=== PATIENT | female | born 1990 | race Caucasian/White ===

== ENCOUNTER 2016-12-27 09:46 | Emergency (ER) | payer SELFPAY ==
[2016-12-27 10:41] LABS: Basophils % (Auto) 0.5 % (0.0-1.8); Eosinophils % (Auto) 1.5 % (0.0-4.3); Hematocrit 39.9 % (30.3-42.9); Hemoglobin 12.8 gm/dl (10.1-14.3); Mean Corpuscular HGB Conc 32 % (30-34); Mean Corpuscular Volume 74 fl (79-97); Platelet Count 222 K/mm3 (140-440); Red Cell Distribution Width 15.7 % (13.2-15.2); White Blood Count 7.7 K/mm3 (4.5-11.0)
[2016-12-27 10:57] LABS: Mean Corpuscular Hemoglobin 24 pg (28-32)
[2016-12-27 11:04] LABS: Anion Gap 17 mmol/L; Blood Urea Nitrogen 6 mg/dL (7-17); Carbon Dioxide 24 mmol/L (22-30); Chloride 101.1 mmol/L (98-107); Glucose 111 mg/dL (65-100); Potassium 3.3 mmol/L (3.6-5.0); Sodium 139 mmol/L (137-145)
--- NOTE | 2016-12-27 11:35 | XRay Report ---
PA and lateral chest: SOB chest pain. There is a moderate scoliosis of the lower thoracic spine. The lungs are clear. The mediastinal contour is unremarkable with no vascular congestion. No prior studies for comparison. Impression: No acute findings.
[2016-12-27] MEDS ORDERED: TYLENOL #3 PO ONE (13:20)
--- NOTE | 2016-12-27 13:20 | Emergency Department Report ---
ED General Adult HPI - General Chief complaint: Chest Pain Stated complaint: BLURRED VISION/SOB/CHEST TIGHTNESS Time Seen by Provider: 12/27/16 13:05 Source: patient Mode of arrival: Ambulatory Limitations: No Limitations - History of Present Illness Initial comments: 26-year-old female. She is previously unknown to me. She reports a past medical history of anxiety. She presents to the ER with central chest wall pain. The pain does not radiate to the back, arms and neck. Patient reports that she is feeling very anxious. No recent trips greater than 4 hours. No recent hospital admissions. There is no posterior leg pain. She is not . She does not use cocaine. She does not report a family history of cardiac disease. Patient reports nonspecific nausea, however there is no diaphoresis. She reports intermittent shortness of breath. Patient reports pain increases with palpation, decreased with rest, it does not radiate to the back, arms or neck. -: Gradual, week(s) Location: chest Quality: aching Consistency: intermittent Improves with: rest Worsens with: movement Associated Symptoms: chest pain - Related Data Home Medications Medication Instructions Recorded Confirmed Last Taken No Known Home Medications [No 12/27/16 12/27/16 Unknown Reported Home Medications] Allergies Allergy/AdvReac Type Severity Reaction Status Date / Time ibuprofen Allergy Swelling Verified 12/27/16 10:00 ED Review of Systems ROS: Stated complaint: BLURRED VISION/SOB/CHEST TIGHTNESS Other details as noted in HPI Constitutional: denies: fever Eyes: denies: vision change ENT: denies: epistaxis Respiratory: see HPI, shortness of breath Cardiovascular: chest pain Gastrointestinal: denies: abdominal pain Genitourinary: denies: urgency, dysuria Musculoskeletal: denies: arthralgia, myalgia Skin: denies: lesions Neurological: weakness Psychiatric: anxiety ED Past Medical Hx - Past Medical History Previous Medical History?: No - Surgical History Past Surgical History?: No - Social History Smoking Status: Current Every Day Smoker Substance Use Type: None - Medications Home Medications: Home Medications Medication Instructions Recorded Confirmed Last Taken Type No Known Home Medications [No 12/27/16 12/27/16 Unknown History Reported Home Medications] ED Physical Exam - General Limitations: No Limitations General appearance: alert, anxious - Head Head exam: Present: atraumatic, normocephalic - Eye Eye exam: Present: normal appearance, EOMI. Absent: nystagmus - ENT ENT exam: Present: normal exam, normal orophraynx, mucous membranes moist, normal external ear exam - Neck Neck exam: Present: normal inspection, full ROM. Absent: tenderness, meningismus - Respiratory Respiratory exam: Present: normal lung sounds bilaterally, chest wall tenderness , other (the bilateral breast exam is unremarkable. During the breast examination, I am escorted by ER nurse Michelle Medina). Absent: respiratory distress, wheezes, rales, rhonchi, stridor - Cardiovascular Cardiovascular Exam: Present: regular rate, normal rhythm, normal heart sounds. Absent: bradycardia, tachycardia, irregular rhythm, systolic murmur, diastolic murmur, rubs, gallop - GI/Abdominal GI/Abdominal exam: Present: soft, normal bowel sounds. Absent: distended, tenderness, guarding, rebound, rigid, pulsatile mass - Extremities Exam Extremities exam: Present: normal inspection, full ROM, normal capillary refill. Absent: tenderness, pedal edema, joint swelling, calf tenderness - Back Exam Back exam: Present: normal inspection, full ROM. Absent: tenderness, CVA tenderness (R), CVA tenderness (L), muscle spasm, paraspinal tenderness, vertebral tenderness - Neurological Exam Neurological exam: Present: alert, oriented X3, normal gait, other (Extraocular movements intact. Tongue midline. No facial droop. Facial sensation intact to light touch in the V1, V2, V3 distribution bilaterally. 5 and 5 strength in 4 extremities.. Sensation is intact to light touch in 4 extremities.). Absent : motor sensory deficit - Psychiatric Psychiatric exam: Present: anxious - Skin Skin exam: Present: warm, dry, intact, normal color. Absent: rash ED Course Vital Signs 12/27/16 12/27/16 10:00 13:14 Temperature 98.4 F Pulse Rate 96 H 68 Respiratory 20 16 Rate Blood Pressure 140/91 Blood Pressure 124/76 [Left] O2 Sat by Pulse 100 98 Oximetry - Reevaluation(s) Reevaluation #1: 12/27/16 14:12 differential diagnosis: Anxiety, panic disorder, costochondritis , acute coronary syndrome, pneumonia Assessment and plan: 26-year-old female with clinically atypical chest pain on and off for one week, it is reproducible, no pulmonary embolus or DVT risk factors, low risk by well's criteria, perc negative. 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 Given objective evidence, the patient is at very low risk for major adverse cardiac event. ED Medical Decision Making - Lab Data Result diagrams: 12/27/16 10:08 12/27/16 10:15 Vital Signs 12/27/16 12/27/16 10:00 13:14 Temperature 98.4 F Pulse Rate 96 H 68 Respiratory 20 16 Rate Blood Pressure 140/91 Blood Pressure 124/76 [Left] O2 Sat by Pulse 100 98 Oximetry Lab Results 12/27/16 12/27/16 12/27/16 Range/Units 10:08 10:08 10:15 WBC 7.7 (4.5-11.0) K/mm3 RBC 5.40 H (3.65-5.03) M/mm3 Hgb 12.8 (10.1-14.3) gm/dl Hct 39.9 (30.3-42.9) % MCV 74 L (79-97) fl MCH 24 L (28-32) pg MCHC 32 (30-34) % RDW 15.7 H (13.2-15.2) % Plt Count 222 (140-440) K/mm3 Lymph % (Auto) 27.9 (13.4-35.0) % [place] % (Auto) 7.2 (0.0-7.3) % Eos % (Auto) 1.5 (0.0-4.3) % Baso % (Auto) 0.5 (0.0-1.8) % Lymph # 2.1 (1.2-5.4) K/mm3 [place] # 0.6 (0.0-0.8) K/mm3 Eos # 0.1 (0.0-0.4) K/mm3 Baso # 0.0 (0.0-0.1) K/mm3 Seg Neutrophils % 62.9 (40.0-70.0) % Seg Neutrophils # 4.8 (1.8-7.7) K/mm3 Sodium 139 (137-145) mmol/L Potassium 3.3 L (3.6-5.0) mmol/L Chloride 101.1 (98-107) mmol/L Carbon Dioxide 24 (22-30) mmol/L Anion Gap 17 mmol/L BUN 6 L (7-17) mg/dL Creatinine 0.6 L (0.7-1.2) mg/dL Estimated GFR > 60 ml/min BUN/Creatinine Ratio 10.00 % Glucose 111 H (65-100) mg/dL Calcium 9.0 (8.4-10.2) mg/dL Troponin T < 0.010 (0.00-0.029) ng/mL HCG, Qual Negative (Negative) - EKG Data -: EKG Interpreted by Co EKG shows normal: sinus rhythm Rate: normal - EKG Data 12/27/16 14:14 EKG #1: Normal sinus, 97 bpm, normal intervals, normal axis, nonspecific STabnormality, not morphologically consistent with STEMI. EKG #2 demonstrates normal sinus, 76 bpm,axis, normal intervals, not morphologically consistent with STEMI, low voltage, borderline left axis deviation. - Radiology Data Radiology results: report reviewed, image reviewed X-ray of the chest is negative for acute disease Critical care attestation.: If time is entered above; I have spent that time in minutes in the direct care of this critically ill patient, excluding procedure time. ED Disposition Clinical Impression: Chest wall pain Disposition: DISCHARGED TO HOME OR SELFCARE Is pt being admited?: No Does the pt Need Aspirin: No Condition: Stable Instructions: Chest Pain (ED), Costochondritis (ED) Additional Instructions: Rest and avoid heavy lifting. Avoid strenuous physical activity. Follow up with any illicit medical care evaluation specialist within the next 3-5 days. Take acetaminophen, 650 mg, every 4-6 hours as needed for pain. Avoid heavy and spicy foods. Return to the ER right away with new pain, worsened pain, migration of pain, fevers or chills, intractable nausea or vomiting, inability to tolerate liquid feeds. Referrals: PRIMARY CARE, [Primary Care Provider] - 3-5 Days ERIN PRICE MD [Staff Physician] - 3-5 Days GABRIELLE RUSSELL MD [Staff Physician] - 3-5 Days
[2016-12-27 13:26] VITALS: BP 124/76
[2016-12-27] MEDS ORDERED: K-DUR PO ONE (14:14)
== END 2016-12-27 15:03 | disposition home or self-care (01) ==
LOC: ED 09:46
DX: R07.89 Other chest pain (principal); F17.200 Nicotine dependence, unspecified, uncomplicated; Z88.6 Allergy status to analgesic agent
CPT/HCPCS: 36415; 71020; 80048; 84484; 84703; 85025; 93005; 93010

== ENCOUNTER 2017-01-30 19:29 | Emergency (ER) | payer SELFPAY ==
[2017-01-30 19:48] VITALS: BP 113/71
[2017-01-30] MEDS ORDERED: PERCOCET 5/325 PO ONE (20:41)
[2017-01-30] MEDS ORDERED: VALIUM IM ONE (20:41)
--- NOTE | 2017-01-30 20:41 | Emergency Department Report ---
- General Chief Complaint: Wound/Laceration Stated Complaint: LT LEG LACERATION Time Seen by Provider: 01/30/17 20:05 Source: patient, family Mode of arrival: Ambulatory Limitations: No Limitations - History of Present Illness Initial Comments: Patient here report that she fell at home and obtained a laceration to her left upper leg. She says she fell on a 4 x 4 piece of board which had nail in it and the nail actually cut her skin. She reports that her tetanus shot up-to- date. Pain is 10 out of 10. Described pain as throbbing and no pain medicine taken prior to coming to the hospital. Pt was transported via ambulance and she had pressure dressing to site. She denies any numbness or tingling distally to laceration. -: This evening Extremity Location: Right: Lower Leg (left proximal leg laceration and pain ) Place: home Patient Tetanus UTD: Yes Context: accidental Associated Symptoms: pain. denies: loss of feeling/numbness, suspect foreign body present, unable to move injured part, weakness followed by dizziness, nausea/vomiting, fever Treatments Prior to Arrival: bandage - Related Data Previous Rx's Medication Instructions Recorded Last Taken Type Acetaminophen/Codeine [Tylenol 1 tab PO Q6H PRN #12 tab 01/30/17 Unknown Rx /Codeine # 3 tab] Cephalexin [Keflex] 500 mg PO Q8HR #21 cap 01/30/17 Unknown Rx Allergies Allergy/AdvReac Type Severity Reaction Status Date / Time ibuprofen Allergy Swelling Verified 12/27/16 10:00 ED Review of Systems ROS: Stated complaint: LT LEG LACERATION Other details as noted in HPI Comment: All other systems reviewed and negative Constitutional: other. denies: chills, fever Respiratory: no symptoms reported Cardiovascular: denies: chest pain, palpitations, edema, syncope Gastrointestinal: denies: abdominal pain, nausea, vomiting Musculoskeletal: arthralgia. denies: back pain, joint swelling, myalgia Skin: other (laceration) Neurological: denies: headache, weakness, numbness, paresthesias, confusion, abnormal gait, vertigo ED Past Medical Hx - Past Medical History Previous Medical History?: No - Surgical History Past Surgical History?: No - Family History Family history: no significant - Social History Smoking Status: Current Every Day Smoker Substance Use Type: None - Medications Home Medications: Home Medications Medication Instructions Recorded Confirmed Last Taken Type Acetaminophen/Codeine [Tylenol 1 tab PO Q6H PRN #12 tab 01/30/17 Unknown Rx /Codeine # 3 tab] Cephalexin [Keflex] 500 mg PO Q8HR #21 cap 01/30/17 Unknown Rx ED Physical Exam - General Limitations: No Limitations General appearance: alert, anxious - Head Head exam: Present: atraumatic, normocephalic, normal inspection - Expanded Head Exam Expanded Head exam: Absent: laceration, abrasion, contusion, hematoma, racoon eyes, hancock's sign, general tenderness, tenderness of temporal artery, CSF rhinorrhea , CSF otorrhea - Eye Eye exam: Present: normal appearance, PERRL, EOMI. Absent: periorbital swelling , periorbital tenderness Pupils: Present: normal accommodation - Neck Neck exam: Present: normal inspection, full ROM. Absent: tenderness, meningismus, lymphadenopathy - Expanded Neck Exam Expanded Neck exam: Absent: tenderness, midline deformity, anterior neck swelling, tracheal deviation - Respiratory Respiratory exam: Present: normal lung sounds bilaterally. Absent: respiratory distress, chest wall tenderness - Cardiovascular Cardiovascular Exam: Present: regular rate, normal rhythm, normal heart sounds - GI/Abdominal GI/Abdominal exam: Present: soft. Absent: tenderness - Extremities Exam Extremities exam: Present: full ROM, tenderness (tenderness around the laceration site left proximal leg), normal capillary refill. Absent: normal inspection, pedal edema, joint swelling, calf tenderness - Expanded Lower Extremity Exam Left Hip exam: Present: normal inspection, full ROM, pelvic stability. Absent: tenderness, swelling, abrasion, laceration, ecchymosis, deformity, crepidus, dislocation, erythema, external rotation, internal rotation, shortening Upper Leg exam: Present: normal inspection, full ROM. Absent: tenderness, swelling, abrasion, laceration, ecchymosis, deformity, crepidus, dislocation, erythema Knee exam: Present: normal inspection, full ROM, full knee extension. Absent: tenderness, swelling, abrasion, laceration, ecchymosis, deformity, crepidus, dislocation, erythema, effusion, pain w/ pronation/supination Lower Leg exam: Present: full ROM, tenderness (left proximal leg, outer lateral) , swelling (lt proximal leg outer lateral laceration site), laceration, erythema (laceration site). Absent: normal inspection, abrasion, ecchymosis, deformity, crepidus, dislocation, palpable cord, [place]'s sign Ankle exam: Present: normal inspection, full ROM. Absent: tenderness, swelling , abrasion, laceration, ecchymosis, deformity, crepidus, dislocation, erythema Foot/Toe exam: Present: normal inspection, full ROM. Absent: tenderness, swelling, abrasion, laceration, ecchymosis, deformity, crepidus, dislocation, erythema, amputation, puncture wound, foreign body, calcaneal tenderness, tenderness at base of 5th metatarsal, nail avulsion, subungual hematoma Neuro vascular tendon exam: Present: no vascular compromise. Absent: pulse deficit, abnormal cap refill, motor deficit, sensory deficit, tendon deficit, extremity cold to touch, pallor, abnormal 2-point discrimination, decreased fine /light touch, foot drop, peroneal nerve deficit, significant pain with passive ROM of distal joint Gait: Positive: observed and limited by pain - Back Exam Back exam: Present: normal inspection, full ROM. Absent: tenderness, CVA tenderness (R), CVA tenderness (L), muscle spasm, paraspinal tenderness, vertebral tenderness, rash noted - Neurological Exam Neurological exam: Present: alert, oriented X3, normal gait, reflexes normal. Absent: motor sensory deficit - Psychiatric Psychiatric exam: Present: anxious - Skin Skin exam: Present: warm, dry, other (Laceration left proximal outer leg) - Expanded Skin Exam Expanded Type of lesion: Present: laceration Distribution of rash: LLE (proximal outer leg) Description of rash: Present: size (6 cm. subcutaneous layer), tenderness, erythematous, swelling. Absent: crusting, discharge, fluctuant, indurated ED Course Vital Signs 01/30/17 01/30/17 19:43 20:53 Temperature 98.1 F Pulse Rate 79 Respiratory 18 20 Rate Blood Pressure 113/71 O2 Sat by Pulse 100 Oximetry - Reevaluation(s) Reevaluation #1: 01/30/17 22:54 Procedure note for laceration repair. She was given Valium 10 mg for anxiety given IM. Given Percocet 5/325 2 tablets by mouth. - Laceration /Wound Repair Left Lateral Proximal Leg Wound Location: lower extremity (proximal, lateral outer leg) Wound Length (cm): 6 Wound's Depth, Shape: into muscle, linear, contused tissue Wound Explored: clean Irrigated w/ Saline (ccs): 500 Betadine Prep?: Yes Anesthesia: 0.5% Sensorcaine (Marcaine without epi) Volume Anesthetic (ccs): 20 Wound Debrided: extensive Wound Repaired With: sutures Suture Size/Type: 3:0 (Ethilon) Number of Sutures: 17 Layer Closure?: Yes Deep Layer Suture Size/Type: 5:0 (Vicryl) Number Deep Layer Sutures: 8 Sterile Dressing Applied?: Yes (tetanus vaccine is up-to-date) ED Medical Decision Making - Radiology Data Radiology results: report reviewed Xr left tib-fib revealed no fracture or dislocation. Soft tissue laceration and no foreign body. - Medical Decision Making ED course: Laceration repaired under sterile procedure. See Procedure note for detail. Patient updated on xr resultsShe given Valium 10 mg IM for anxiety prior to procedure and Percocet 5/325 2 tablets to manage pain. I discussed with patient that she will need to return to emergency department in 7-10 days to have stitches removed. I also discussed with her that I have to put her on antibiotic for 7 days and she will need to keep area clean and dry. She was understanding the discharge instruction and diagnosis. She said her tetanus shot is up-to-date. < 5 years. Patient discharged home with her family in stable condition with prescriptions for Keflex and Tylenol No. 3. Critical care attestation.: If time is entered above; I have spent that time in minutes in the direct care of this critically ill patient, excluding procedure time. ED Disposition Disposition: DISCHARGED TO HOME OR SELFCARE Is pt being admited?: No Does the pt Need Aspirin: No Condition: Stable Instructions: Suture Care (ED), Laceration (ED), Arthralgia (ED) Additional Instructions: Keep affected area clean and dry. Take antibiotic as prescribed to prevent infection Return to emergency department in 7-10 days to have stitches removed. Do not drive or operate heavy machinery while taking Tylenol No. 3 as this medication causes drowsiness. Prescriptions: Acetaminophen/Codeine [Tylenol /Codeine # 3 tab] 1 tab PO Q6H PRN #12 tab PRN Reason: Pain Cephalexin [Keflex] 500 mg PO Q8HR #21 cap Referrals: [facility] [Outside] - 02/03/17 ED, RETURN [Other] - 7-10 days Forms: Accompanied Note, Work/School Release Form(ED)
[2017-01-30] MEDS ORDERED: NACL 0.9% IR ONE (20:43)
[2017-01-30] MEDS ORDERED: MARCAINE 0.5% INFILTRATI NR (21:00)
--- NOTE | 2017-01-30 22:06 | XRay Report ---
FINAL REPORT PROCEDURE: XR TIBIA FIBULA 2V LT TECHNIQUE: LEFT knee radiographs, AP, lateral and sunrise views. CPT 66751 HISTORY: Lt leg injury with lac. Looking for FB COMPARISON: No prior studies are available for comparison. FINDINGS: Fracture (s) and/or Dislocation(s): None . Alignment: Normal . Joint space(s): Normal . Soft tissues: There is focal soft tissue laceration adjacent to the proximal fibula.. Bone mineralization: Normal . Foreign bodies: None . IMPRESSION: There are no fractures or malalignments. There is soft tissue laceration adjacent to the fibula. There is no foreign body..
== END 2017-01-30 23:20 | disposition home or self-care (01) ==
LOC: ED 19:29
DX: S71.112A Laceration without foreign body, left thigh, initial encounter (principal); F17.200 Nicotine dependence, unspecified, uncomplicated; W18.30XA Fall on same level, unspecified, initial encounter; Y93.9 Activity, unspecified; Y92.9 Unspecified place or not applicable; Y99.9 Unspecified external cause status
CPT/HCPCS: 12032; 73590; 96372; 99283; J3360

== ENCOUNTER 2018-04-17 01:14 | Emergency (ER) | payer SELFPAY ==
[2018-04-17 02:51] VITALS: BP 121/90
[2018-04-17] MEDS ORDERED: ASPIRIN PO ONE (02:55)
[2018-04-17] MEDS ORDERED: TYLENOL PO ONE (02:58)
[2018-04-17 03:46] LABS: BUN/Creatinine Ratio 18; Blood Urea Nitrogen 9 mg/dL (7-17); Calcium 9.2 mg/dL (8.4-10.2); Hemolysis Index 8
[2018-04-17 03:59] LABS: Basophils % (Auto) 0.5 % (0.0-1.8); Eosinophils # (Auto) 0.1 K/mm3 (0.0-0.4); Eosinophils % (Auto) 1.3 % (0.0-4.3); Hematocrit 41.4 % (30.3-42.9); Hemoglobin 13.5 gm/dl (10.1-14.3); Lymphocytes % (Auto) 35.4 % (13.4-35.0); Mean Corpuscular HGB Conc 33 % (30-34); Mean Corpuscular Volume 78 fl (79-97); Monocytes # (Auto) 0.5 K/mm3 (0.0-0.8); Monocytes % (Auto) 5.7 % (0.0-7.3); Platelet Count 229 K/mm3 (140-440); Red Blood Count 5.32 M/mm3 (3.65-5.03); Red Cell Distribution Width 14.5 % (13.2-15.2)
[2018-04-17 04:17] LABS: Mean Corpuscular Hemoglobin 25 pg (28-32)
== END 2018-04-17 03:05 | disposition left against medical advice (07) ==
LOC: ED 01:14
DX: R07.9 Chest pain, unspecified (principal); R06.00 Dyspnea, unspecified; Z53.21 Procedure and treatment not carried out due to patient leaving prior to being seen by health care provider
CPT/HCPCS: 36415; 80048; 84484; 84703; 85025; 93005; 93010

== ENCOUNTER 2019-01-07 14:01 | Emergency (ER) | payer SELFPAY ==
--- NOTE | 2019-01-07 14:30 | Emergency Department Report ---
Blank Doc - Documentation Documentation: this is a 28-year-old female that presents with right lower abdominal pain with n/v. This initial assessment/diagnostic orders/clinical plan/treatment(s) is/are subject to change based on patient's health status, clinical progression and re- assessment by fellow clinical providers in the ED. Further treatment and workup at subsequent clinical providers discretion. Patient/guardians urged not to elope from the ED as their condition may be serious if not clinically assessed and managed. Initial orders include: 1- Patient sent to [facility] for further evaluation and treatment 2- labs 3- UA
[2019-01-07 14:33] VITALS: BP 139/80
[2019-01-07 15:03] LABS: Alanine Aminotransferase 8 units/L (7-56); Albumin 4.2 g/dL (3.9-5); BUN/Creatinine Ratio 18; Blood Urea Nitrogen 9 mg/dL (7-17); Calcium 9.2 mg/dL (8.4-10.2); Hemolysis Index 10
[2019-01-07 15:05] LABS: Basophils # (Auto) 0.1 K/mm3 (0.0-0.1); Basophils % (Auto) 0.8 % (0.0-1.8); Eosinophils # (Auto) 0.1 K/mm3 (0.0-0.4); Eosinophils % (Auto) 1.3 % (0.0-4.3); Hemoglobin 13.9 gm/dl (10.1-14.3); Lymphocytes # (Auto) 2.6 K/mm3 (1.2-5.4); Lymphocytes % (Auto) 33.4 % (13.4-35.0); Mean Corpuscular HGB Conc 32 % (30-34); Mean Corpuscular Volume 80 fl (79-97); Monocytes # (Auto) 0.6 K/mm3 (0.0-0.8); Monocytes % (Auto) 8.2 % (0.0-7.3); Platelet Count 218 K/mm3 (140-440); Red Blood Count 5.35 M/mm3 (3.65-5.03); Red Cell Distribution Width 14.7 % (13.2-15.2)
[2019-01-07 15:06] LABS: Bilirubin,Urine NEG (Negative); Blood,Urine NEG (Negative); Color,Urine Yellow (Yellow); Mucus,Urine FEW /HPF; Protein,Urine <15 mg/dL mg/dL (Negative); Urobilinogen,Urine < 2.0 mg/dL (<2.0); WBC,Urine < 1.0 /HPF (0.0-6.0)
[2019-01-07 15:14] LABS: Bilirubin,Direct < 0.2 mg/dL (0-0.2)
== END 2019-01-07 14:30 | disposition left against medical advice (07) ==
LOC: ED 14:01
DX: R10.9 Unspecified abdominal pain (principal); Z53.21 Procedure and treatment not carried out due to patient leaving prior to being seen by health care provider
CPT/HCPCS: 36415; 80048; 80076; 81001; 83690; 84703; 85025